=== PATIENT | male | born 1985 | race Two or more races ===

== ENCOUNTER → 2017-05-13 | Outpatient (CLI) | payer OTHER ==
--- NOTE | 2017-05-13 09:27 | RAD ---
Examination: CT maxillofacial bones History: History of congestion, increasing difficulty breathing through the nose Comparison: None available Technique: Axial CT images of the maxillofacial bones were performed without contrast coronal and sagittal reformats are performed. PQRS Compliance Statement: One or more of the following individualized dose reduction techniques were utilized for this examination: 1. Automated exposure control 2. Adjustment of the mA and/or kV according to patient size 3. Use of iterative reconstruction technique Findings: The visualized frontal sinuses, sphenoid sinuses, maxillary sinuses, mastoid air cells are clear. There is minimal mucosal thickening identified in the bilateral ethmoidal sinuses. There is mucosal thickening identified in nasal cavity about the turbinates. The bilateral orbital globes appear intact. Hardware identified along the left inferior orbital rim. There is a minimal leftward shift of the nasal septum. Impression: 1. Moderate mucosal thickening identified in the nasal cavity probably due to congestion. 2. Mild mucosal thickening identified in the bilateral ethmoidal sinuses otherwise the sinuses are clear.
== END | disposition home or self-care (01) ==
LOC: CT 08:46
DX: J34.3 Hypertrophy of nasal turbinates (principal); R09.81 Nasal congestion
CPT/HCPCS: 70486